=== PATIENT | female | born 1935 | race Asian ===

== ENCOUNTER 2018-05-05 01:49 | Emergency (ER) | payer MEDICARE, OTHER ==
[2018-05-05 02:57] LABS: Basophils # (auto) 0.1 uL; Basophils % (auto) 1.4 % (0.0-2.0); Eosinophils # (auto) 0.1 uL; Eosinophils % (auto) 1.5 % (0.0-7.0); Hematocrit 40.1 % (36.0-46.0); Hemoglobin 13.1 g/dL (12.2-16.2); Lymphocytes # (auto) 1.4 uL; Mean Corpuscular Hemoglobin 27.4 pg (28.0-32.0); Mean Corpuscular Hgb Conc. 32.6 g/dL (32.0-36.0); Mean Corpuscular Volume 84.2 fL (80.0-100.0); Monocytes # (auto) 0.5 uL; Monocytes % (auto) 7.5 % (0.0-12.0); Neutrophils # (auto) 4.3 uL; Neutrophils % (auto) 67.6 % (37.0-80.0); Platelet Count (auto) 266 10^3/uL (140-450); Red Blood Cells 4.77 10^6/uL (4.0-5.20); Red Cell Distribution Width 18.2 % (11.8-14.3); White Blood Cell 6.3 10^3/uL (4.4-10.8)
[2018-05-05 03:13] LABS: Albumin 3.3 g/dL (3.4-5.0); Anion Gap 7 (5-15); Blood Urea Nitrogen 15 mg/dL (7-18); Calcium 8.4 mg/dL (8.5-10.1); Carbon Dioxide 28 mmol/L (21-32); Chloride 103 mmol/L (98-107); Glucose 187 mg/dL (74-106); Magnesium 1.7 mg/dL (1.6-2.6); Potassium 3.8 mmol/L (3.5-5.1); Sodium 138 mmol/L (136-145)
[2018-05-05 03:19] LABS: Alanine Aminotransferase 16 U/L (13-56); Alkaline Phosphatase 120 U/L (45-117); Aspartate Aminotransferase 15 U/L (15-37); Bilirubin, Total 0.6 mg/dL (0.2-1.0); GFR African American 74 mL/min; GFR Non-African American 61 mL/min; Total Protein 7.8 g/dL (6.4-8.2)
[2018-05-05 09:03] VITALS: BP 142/90
== END 2018-05-05 09:40 | disposition home or self-care (01) ==
LOC: ER 01:54
DX: S00.03XA Contusion of scalp, initial encounter (principal); E11.65 Type 2 diabetes mellitus with hyperglycemia; E44.1 Mild protein-calorie malnutrition; I48.91 Unspecified atrial fibrillation; E11.9 Type 2 diabetes mellitus without complications; F03.90 Unspecified dementia, unspecified severity, without behavioral disturbance, psychotic disturbance, mood disturbance, and anxiety; Z68.42 Body mass index [BMI] 45.0-49.9, adult; W20.8XXA Other cause of strike by thrown, projected or falling object, initial encounter; Y93.89 Activity, other specified; Y92.098 Other place in other non-institutional residence as the place of occurrence of the external cause; Y99.8 Other external cause status
CPT/HCPCS: 36415; 70450; 72125; 80053; 83735; 84484; 85025; 93005

== ENCOUNTER → 2018-08-17 | Outpatient (CLI) | payer MEDICARE, MEDICAID ==
[~2018-08-17] MED LIST: DABI150C PO; DIGO0.1220 PO; DONE10TA17 PO; DONE10TA40 PO; ISOS1TAB37 PO; LOSA100T22 PO; MET50T PO; METF-370 PO; MIRT30TA OR; SITA50TA PO
== END | disposition home or self-care (01) ==
LOC: Rad HDHVI 10:35
PROVIDERS: ATTEND Internal Medicine Cardiovascular Disease
DX: I08.8 Other rheumatic multiple valve diseases (principal); I48.0 Paroxysmal atrial fibrillation; I42.0 Dilated cardiomyopathy
CPT/HCPCS: 93306